=== PATIENT | female | born 1945 | race Caucasian/White ===

== ENCOUNTER 2024-01-14 16:05 | Outpatient (CLI) | payer MEDICARE, MEDICAID ==
[~2024-01-14] VITALS: Ht 157.5 cm; Wt 63.5 kg
[2024-01-14] MEDS: albuterol 2.5 MG/3 ML nebule NEB ONE (17:05)
[2024-01-14 17:15] VITALS: PULSE 102; RESP 18; O2SAT 91
== END 2024-01-14 23:59 | disposition home or self-care (01) ==
LOC: RT 16:05
PROVIDERS: ATTEND Physician Assistant
DX: J44.9 Chronic obstructive pulmonary disease, unspecified (principal); R06.02 Shortness of breath
CPT/HCPCS: 94060; 94727; 94729; 94760; C1758

== ENCOUNTER 2024-01-20 10:45 | Emergency (ER) | payer MEDICARE, MEDICAID ==
[~2024-01-20] VITALS: Ht 157.5 cm; Wt 84.1 kg
[2024-01-20 11:02] LABS: BASOPHILS % (AUTO) 0.3 % (0-1); EOSINOPHILS % (AUTO) 0.4 % (0-6); HEMATOCRIT 43.3 % (35.0-45.0); HEMOGLOBIN 14.1 g/dl (12.0-16.0); LYMPHOCYTES # (AUTO) 0.9 X10'3 (1.1-4.8); LYMPHOCYTES % (AUTO) 12.5 % (21-51); MEAN CORPUSCULAR HGB CONC 32.5 g/dL (33.0-36.5); MEAN CORPUSCULAR VOLUME 89.3 FL (78-98); MEAN PLATELET VOLUME 8.5 FL (7.4-10.4); MONOCYTES # (AUTO) 0.6 X10'3 (0-0.9); MONOCYTES % (AUTO) 8.2 % (2-12); NEUTROPHILS % (AUTO) 78.6 % (42-75); PLATELET COUNT 265 X10'3 (140-440); RED BLOOD COUNT 4.85 X10'6 (4.20-5.60); RED CELL DISTRIBUTION WIDTH 13.7 % (11.5-14.5); WHITE BLOOD COUNT 7.6 X10'3 (4.5-11.0)
[2024-01-20 11:04] VITALS: TEMP 97.9
[2024-01-20 11:15] LABS: ALANINE AMINOTRANSFERASE 25 U/L (12-78); ALBUMIN 3.9 G/DL (3.4-5.0); ALKALINE PHOSPHATASE 79 IU/L (46-116); ANION GAP 7 (8-16); ASPARTATE AMINO TRANSFERASE 13 U/L (10-37); BILIRUBIN,TOTAL 0.6 MG/DL (0.1-1.0); BLOOD UREA NITROGEN 12 MG/DL (7-18); BUN/CREATININE RATIO 18.8 (10.0-20.0); CHLORIDE 100 MMOL/L (99-107); CREATININE 0.64 MG/DL (0.40-0.90); GLUCOSE 119 MG/DL (70-104); SODIUM 137 MMOL/L (135-145); TOTAL CARBON DIOXIDE 30.4 MMOL/L (24-32); TOTAL PROTEIN 7.7 G/DL (6.4-8.2); eCRCL 55 ML/MIN; eGFR 89 ML/MIN
[2024-01-20 11:23] LABS: PRO BRAIN NATRIURETIC PEPTIDE 356 PG/ML (0-450)
[2024-01-20] MEDS: methylPREDNISolone sod succ 125mg/2ml vial IV ONE (12:05)
[2024-01-20] MEDS: ipratropium/albuterol 3ml nebule NEB ONE (12:08)
[2024-01-20 12:11] VITALS: PULSE 103; RESP 18; O2SAT 98
[2024-01-20 12:16] VITALS: PULSE 100; RESP 18; O2SAT 98
[2024-01-20] MEDS ORDERED: GUAI600T45 PO (13:29)
[2024-01-20] MEDS ORDERED: PRED20TA PO (13:29)
[2024-01-20] MEDS ORDERED: ALBU18HF2 INH (13:29)
[2024-01-20] MEDS ORDERED: AZIT250T81 PO (13:29)
[2024-01-20 13:38] VITALS: BP 174/91; PULSE 90; RESP 16; O2SAT 96
== END 2024-01-20 13:41 | disposition home or self-care (01) ==
LOC: ER 10:46
DX: J44.1 Chronic obstructive pulmonary disease with (acute) exacerbation (principal); Z88.8 Allergy status to other drugs, medicaments and biological substances; Z79.899 Other long term (current) drug therapy; Z79.52 Long term (current) use of systemic steroids
CPT/HCPCS: 36415; 71045; 80053; 83880; 84484; 85025; 93005; 94640; 96374; 99285; J2919; Z7610; 94760

== ENCOUNTER 2024-06-21 07:24 | Emergency (ER) | payer MEDICARE, MEDICAID ==
[~2024-06-21] VITALS: Ht 157.5 cm; Wt 84.1 kg
[~2024-06-21 07:24] MED LIST: ALBU18HF2 INH; GUAI600T45 PO
[2024-06-21 07:47] LABS: BASOPHILS % (AUTO) 0.5 % (0-1); EOSINOPHILS # (AUTO) 0.1 X10'3 (0-0.9); HEMATOCRIT 40.8 % (35.0-45.0); HEMOGLOBIN 13.4 g/dl (12.0-16.0); LYMPHOCYTES # (AUTO) 1.1 X10'3 (1.1-4.8); LYMPHOCYTES % (AUTO) 17.3 % (21-51); MEAN CORPUSCULAR HEMOGLOBIN 29.9 PG (27.0-31.0); MEAN CORPUSCULAR HGB CONC 32.8 g/dL (33.0-36.5); MEAN CORPUSCULAR VOLUME 91.2 FL (78-98); MEAN PLATELET VOLUME 8.7 FL (7.4-10.4); MONOCYTES # (AUTO) 0.5 X10'3 (0-0.9); MONOCYTES % (AUTO) 8.1 % (2-12); NEUTROPHILS # (AUTO) 4.8 X10'3 (1.8-7.7); NEUTROPHILS % (AUTO) 73.1 % (42-75); PLATELET COUNT 272 X10'3 (140-440); RED BLOOD COUNT 4.47 X10'6 (4.20-5.60); WHITE BLOOD COUNT 6.6 X10'3 (4.5-11.0)
[2024-06-21 08:01] LABS: ALANINE AMINOTRANSFERASE 17 U/L (12-78); ALBUMIN 3.8 G/DL (3.4-5.0); ALBUMIN/GLOBULIN RATIO 1.1 (1.1-1.5); ALKALINE PHOSPHATASE 82 IU/L (46-116); ANION GAP 7 (8-16); ASPARTATE AMINO TRANSFERASE 20 U/L (10-37); BILIRUBIN,TOTAL 0.6 MG/DL (0.1-1.0); BLOOD UREA NITROGEN 9 MG/DL (7-18); CALCIUM 8.9 MG/DL (8.5-10.1); CHLORIDE 100 MMOL/L (99-107); GLUCOSE 117 MG/DL (70-104); POTASSIUM 4.2 MMOL/L (3.5-5.1); SODIUM 138 MMOL/L (135-145); TOTAL CARBON DIOXIDE 31.5 MMOL/L (24-32); TOTAL PROTEIN 7.2 G/DL (6.4-8.2); eCRCL 58 ML/MIN; eGFR > 90 ML/MIN
[2024-06-21 08:08] LABS: PRO BRAIN NATRIURETIC PEPTIDE 335 PG/ML (0-450)
[2024-06-21] MEDS ORDERED: methylPREDNISolone sod succ 125mg/2ml vial IV ONE (11:10)
[2024-06-21] MEDS: ipratropium/albuterol 3ml nebule NEB ONE (11:28)
[2024-06-21 11:29] VITALS: PULSE 106; PULSE 99; RESP 22; O2SAT 94; O2SAT 96
[2024-06-21] MEDS: DOXYCYCLINE 100MG CAPSULE PO STA (12:37)
[2024-06-21] MEDS: methylPREDNISolone sod succ 125mg/2ml vial IM ONE (12:37)
[2024-06-21 12:47] VITALS: TEMP 98.7
[2024-06-21] MEDS ORDERED: BUDE10.2 INH (13:28)
[2024-06-21] MEDS ORDERED: PRED10TA23 PO (13:28)
[2024-06-21] MEDS ORDERED: DOXY100T67 PO (13:28)
[2024-06-21 16:03] VITALS: BP 193/85; PULSE 92; RESP 18; O2SAT 92
== END 2024-06-21 14:00 | disposition home or self-care (01) ==
LOC: ER 07:24
DX: J44.1 Chronic obstructive pulmonary disease with (acute) exacerbation (principal); Z88.5 Allergy status to narcotic agent; Z88.8 Allergy status to other drugs, medicaments and biological substances; Z79.899 Other long term (current) drug therapy
CPT/HCPCS: 36415; 71045; 80053; 83880; 84484; 85025; 93005; 94640; 96372; 99285; A4615; J2919; Z7610; 94760

== ENCOUNTER 2025-02-07 10:13 | Emergency (ER) | payer MEDICARE, MEDICAID ==
[~2025-02-07] VITALS: Ht 157.5 cm; Wt 73.3 kg
[~2025-02-07 10:13] MED LIST changes: -ALBU18HF2 INH; +AMLO2.5T2 PO; +ASPI-1265 PO; +CEFD300C3 PO; +DICY10CA88 PO; -GUAI600T45 PO; +HYDR-3686 PO; +HYDR-3972 PO; +HYDR25TA4 PO; +LATA2.5D14 LEFTEYE; +LATA2.5D14 RIGHTEYE; +LOSA-416 PO; +PRED20TA PO; +TIOT4MIS3 INH
--- NOTE | 2025-02-07 10:25 | ELECTROCARDIOGRAPH REPORT ---
[facility] Test Date: 2025-02-07 Test Time: 10:23:58 Pat Name: MANDIE JEFFREY Department: [facility]-ER Patient ID: [facility]-[id number] Room: Gender: F Log [employer]bler: : 1945 Requested By: HANY RAMIREZ Order Number: [id number] Reading MD: Dr. Cuate Carter Measurements Intervals [place] Rate: 105 P: -32 KS: 46 QRS: 64 QRSD: 80 T: 88 QT: 335 QTc: 443 Interpretive Statements Sinus tachycardia with irregular rate ST elevation, consider inferior injury Electronically Signed On 02-08-2025 10:24:[address] Cuate Carter Please click the below link to view image of tracing.
[2025-02-07 10:52] LABS: BASOPHILS % (AUTO) 0.7 % (0-1); EOSINOPHILS % (AUTO) 0.6 % (0-6); HEMATOCRIT 37.1 % (35.0-45.0); HEMOGLOBIN 12.2 g/dl (12.0-16.0); LYMPHOCYTES # (AUTO) 1.2 X10'3 (1.1-4.8); LYMPHOCYTES % (AUTO) 16.6 % (21-51); MEAN CORPUSCULAR HEMOGLOBIN 28.9 PG (27.0-31.0); MEAN CORPUSCULAR HGB CONC 32.9 g/dL (33.0-36.5); MEAN PLATELET VOLUME 8.8 FL (7.4-10.4); MONOCYTES # (AUTO) 0.6 X10'3 (0-0.9); MONOCYTES % (AUTO) 8.7 % (2-12); NEUTROPHILS # (AUTO) 5.2 X10'3 (1.8-7.7); NEUTROPHILS % (AUTO) 73.4 % (42-75); PLATELET COUNT 264 X10'3 (140-440); RED BLOOD COUNT 4.22 X10'6 (4.20-5.60); RED CELL DISTRIBUTION WIDTH 14.3 % (11.5-14.5); WHITE BLOOD COUNT 7.1 X10'3 (4.5-11.0)
[2025-02-07] MEDS: ipratropium/albuterol 3ml nebule NEB ONE (11:04)
[2025-02-07 11:05] VITALS: PULSE 106; RESP 18; O2SAT 96
--- NOTE | 2025-02-07 11:05 | Physician Documentation ---
History of Present Illness ~ Chief Complaint: Shortness of Breath Stated Complaint: COPD CONGESTOIN Time Seen by MD: 10:31 Primary Medical Doctor: makayla puga HPI 79-year-old female presents to the ED with a complaint of increasing shortness of breath of the last few days. States she has developed a cough as well patient does utilized 3 L oxygen at home. She feels like she just can not catch her breath. She denies any chest pain nausea vomiting Medication Reconciliation Allergies: Coded Allergies: codeine (Verified Allergy, Unknown, NERVOUS, 01/14/24) lisinopril (Verified Allergy, Unknown, LEG CRAMPS, 01/14/24) zolpidem (Verified Allergy, Unknown, ALTERED MENTAL STATUS, 01/14/24) Scheduled Amlodipine* (Norvasc*), 1 TAB PO DAILY, (Reported) Aspirin (Aspirin), 1 TAB PO DAILY, (Reported) Azithromycin (Azithromycin), 1 TAB PO DAILY Cefdinir* (Cefdinir*), 1 CAP PO Q12H Hydrochlorothiazide (Hydrochlorothiazide), 1 TAB PO DAILY, (Reported) Hydroxyzine Hcl (Atarax), 1 TAB PO DAILY, (Reported) Latanoprost (Latanoprost), 1 DROP RIGHTEYE HS, (Reported) Latanoprost (Latanoprost), 1 DROP LEFTEYE HS, (Reported) Losartan* (Cozaar*), 2 TAB PO DAILY, (Reported) Prednisone (Prednisone), 1 TAB PO BID Prednisone* (Prednisone*), 2 TAB PO DAILY Tiotropium Br/Olodaterol HCl (Stiolto Respimat Inhal [place]), 2 PUFFS INH DAILY, (Reported) Scheduled PRN Dicyclomine Hcl* (Bentyl*), 2 CAP PO Q6H PRN for ABDOMINAL PAIN, (Reported) Hydrocodone Bit/Acetaminophen (Hydrocodon-Acetaminophn 10-325 tablet), 1 TAB PO TID PRN for pain, (Reported) Past Medical History Past Medical History: COPD Patient History: FH: throat cancer Brother Hodgkin's lymphoma Brother Review of Systems All Other Systems at this time: Reviewed and Negative ROS As stated above in the HPI, otherwise all systems are reviewed and negative. Physical Exam Vital Signs: Temperature: 98.8, Source: Temporal, Heart Rate: 106, Respiratory Rate: 17, BP: 152/65, Pulse Oximetry: 96, Weight: 73.300 Oxygen Flow Rate: 3.0 Physical Exam General: Alert, no apparent distress. Respiratory: Diminished lung sounds Chest: No accessory muscle use. Cardiovascular: Regular rate and rhythm, no murmurs. Psychiatric: Normal mood and affect. Skin: Normal color, warm and dry. No edema, no ecchymosis. Progress Results/Orders Results/Orders Orders - JOMAR GEIGER SCORE CALLER Svn Treatment (02/07/25 ) Completed Orders - JOMAR GEIGER SCORE CALLER Ipratropium/Albuterol Nebule (Ipratrop/A (02/07/25 10:50) Methylprednisolone Sod Succ (Solumedrol (02/07/25 10:50) Medications Received in ER Medications (Trade) Dose Ordered Sig/Sirena Route PRN Reason Start Time Stop Time Status Last Admin Dose Admin (ipratrop/ albuterol 0.5-3(2.5) MG/3ml nebule) 3 ml ONCE ONCE NEB 02/07/25 10:50 02/07/25 11:23 DC 02/07/25 11:04 3 ML (SoluMEDROL 125mg inj) 125 mg ONCE ONCE IV 02/07/25 10:50 02/07/25 11:23 DC 02/07/25 11:08 125 MG Vital Signs 02/07/25 02/07/25 02/07/25 02/07/25 10:18 10:55 10:55 10:55 Temp 98.8 98.8 Pulse 106 105 Resp 17 18 20 B/P (MAP) 152/65 139/75 (96) Pulse Ox 96 93 95 O2 Delivery Nasal Cannula* O2 Flow Rate 3.0 1 1 FiO2 24 24 02/07/25 02/07/25 02/07/25 11:05 11:12 11:44 Temp 98.8 Pulse 106 104 102 Resp 18 18 19 B/P (MAP) 138/69 Pulse Ox 96 93 97 O2 Delivery Nasal Cannula* Nasal Cannula* O2 Flow Rate 3 3 FiO2 32 32 Laboratory Tests Test 02/07/25 10:29 White Blood Count 7.1 Red Blood Count 4.22 Hemoglobin 12.2 Hematocrit 37.1 Mean Corpuscular Volume 88.0 Mean Corpuscular Hemoglobin 28.9 Mean Corpuscular Hemoglobin Concent 32.9 L Red Cell Distribution Width 14.3 Platelet Count 264 Mean Platelet Volume 8.8 Neutrophils (%) (Auto) 73.4 Lymphocytes (%) (Auto) 16.6 L Monocytes (%) (Auto) 8.7 Eosinophils (%) (Auto) 0.6 Basophils (%) (Auto) 0.7 Neutrophils # (Auto) 5.2 Lymphocytes # (Auto) 1.2 Monocytes # (Auto) 0.6 Eosinophils # (Auto) 0.0 Basophils # (Auto) 0.0 CBC Comment Sodium Level 137 Potassium Level 3.9 Chloride Level 98 L Carbon Dioxide Level 31.8 Anion Gap 7 L Blood Urea Nitrogen 13 Creatinine 0.63 Estimated GFR/1.73 m2 > 90 BUN/Creatinine Ratio 20.6 H Glucose Level 101 Calcium Level 9.4 Troponin I High Sensitivity 16 Pro-B-Type Natriuretic Peptide 279 Albumin 3.6 Chemistry Comments Medical Decision Making Findings This is an 79-year-old female has been adamant about not staying in the hospital since her arrival. I did see some improvement her lung sounds after receiving breathing treatment and Solu-Medrol. I do think she would benefit from hospital admission but she continues to refuse. Start her on azithromycin secondary to her COPD diagnosis and symptoms. Differential Dx:Considerations: Include: anxiety, asthma, bronchitis, cardiogenic shock, CHF, COPD, dysrhythmia, hypertension, accelerated, hypertension, essential, hypertension, malignant, hyperventilation, hyponatremia, myocardial infarction, panic attack, pneumonia, pneumonitis, pneumothorax, PSVT, pulmonary embolism, respiratory distress, respiratory failure, sinusitis, upper resp. infection, other Departure Impression: Primary Impression: Chronic obstructive pulmonary disease Additional Impression: Acute upper respiratory infection Condition: Improved Discharge Instructions: Upper Respiratory Infection, Adult Referrals: NO PRIMARY CARE PROVIDER (PCP) Prescriptions Prednisone (Prednisone) 10 Mg Tablet 1 TAB PO BID for 5 Days, #10 TAB Prov: JOMAR GEIGER NP 02/07/25 Azithromycin (Azithromycin) 500 Mg Tablet 1 TAB PO DAILY for 5 Days, #5 TAB 0 Refills Prov: JOMAR GEIGER NP 02/07/25 Signature Scribe Signature: g Attestation: Scribed for Jomar Geiger Np by Jomar Barry NP . 02/07/25 18:09 JOMAR GEIGER NP Feb 07, 2025 11:05
[2025-02-07] MEDS: methylPREDNISolone sod succ 125mg/2ml vial IV ONE (11:08)
[2025-02-07 11:09] LABS: ALBUMIN 3.6 G/DL (3.4-5.0); ANION GAP 7 (8-16); BLOOD UREA NITROGEN 13 MG/DL (7-18); BUN/CREATININE RATIO 20.6 (10.0-20.0); CALCIUM 9.4 MG/DL (8.5-10.1); CHLORIDE 98 MMOL/L (99-107); CREATININE 0.63 MG/DL (0.40-0.90); GLUCOSE 101 MG/DL (70-104); POTASSIUM 3.9 MMOL/L (3.5-5.1); PRO BRAIN NATRIURETIC PEPTIDE 279 PG/ML (0-450); SODIUM 137 MMOL/L (135-145); TOTAL CARBON DIOXIDE 31.8 MMOL/L (24-32); eCRCL 55 ML/MIN; eGFR > 90 ML/MIN
[2025-02-07 11:12] VITALS: PULSE 104; RESP 18; O2SAT 93
[2025-02-07] MEDS ORDERED: PRED10TA23 PO (11:33)
[2025-02-07] MEDS ORDERED: AZIT500T9 PO (11:33)
[2025-02-07 11:44] VITALS: BP 138/69; PULSE 102; RESP 19; TEMP 98.8; O2SAT 97
--- NOTE | 2025-02-07 18:58 | RADIOLOGY REPORT ---
CHEST RADIOGRAPH Indication: CP Technique: Single frontal view of the chest was obtained Comparison: 11/08/2024 FINDINGS: Chest The cardiac silhouette is enlarged. Moderate to large hiatal hernia. Elevation right hemidiaphragm. T he lungs demonstrate bilateral patchy airspace opacities most pronounced within the left mid to lower lung. The pulmonary vasculature is prominent. Aortic atherosclerotic disease. Small bilateral pleur al effusions. There is no pneumothorax. Postsurgical changes left lateral chest wall. IMPRESSION: As above
== END 2025-02-07 17:42 | disposition home or self-care (01) ==
LOC: ER 10:13
DX: J44.9 Chronic obstructive pulmonary disease, unspecified (principal); J06.9 Acute upper respiratory infection, unspecified; Z88.5 Allergy status to narcotic agent; Z88.8 Allergy status to other drugs, medicaments and biological substances; Z79.899 Other long term (current) drug therapy; Z79.82 Long term (current) use of aspirin
CPT/HCPCS: 36415; 71045; 80048; 83880; 84484; 85025; 93005; 94640; 96374; 99285; J2919; 94760